=== PATIENT | male | born 1990 | race Caucasian/White ===

== ENCOUNTER 2021-02-10 15:49 | Emergency (ER) | payer MEDICARE, MEDICAID, SELFPAY ==
[2021-02-10 15:52] VITALS: BP 133/94; PULSE 61; RESP 18; TEMP 35.7; O2SAT 99; BMI 38.4
[2021-02-10 17:29] LABS: Absolute Lymphocyte Count 2.49 X10^3/uL (0.83-4.51); Absolute Neutrophil Count 5.8 X10^3/uL (2.0-7.7); Basophil# 0.04 X10^3/uL; Basophil% 0.4 % (0-1); Eosinophil# 0.15 X10^3/uL; Eosinophils% 1.6 % (0-5); Hematocrit 45.6 % (40-54); Hemoglobin 15.7 g/dL (13.0-16.5); Lymphocyte # 2.49 X10^3/ul (0.83-4.51); Lymphocyte % 27.1 % (19-41); Mean Corp Hgb Conc 34.4 g/dL (32-36); Mean Corpuscular Hgb 30.4 pg (27.0-32.0); Mean Corpuscular Volume 88.4 fL (80-94); Mean Platelet Vol. 9.9 fl (6.2-12.0); Monocyte# 0.62 X10^3/uL; Monocyte% 6.8 % (0-10); NRBC Flagged by Analyzer 0 % (0-5); Neutrophil # 5.82 X10^3/uL (2.7-7.7); Neutrophil % 63.4 % (47-70); Platelet Count 289 K/mm3 (150-450); RBC Distribution Width SD 38.5 fl (35.1-43.9); Red Blood Count 5.16 M/mm3 (4.6-6.2); White Blood Count 9.2 K/mm3 (4.4-11.0)
[2021-02-10 17:35] LABS: Anion Gap 4 (5-15); BUN 19 mg/dL (7-18); BUN/Creat Ratio 18.4 RATIO (10-20); Calcium,Total 9.3 mg/dL (8.5-10.1); Chloride 105 mmol/L (98-107); Creatinine, Serum 1.03 mg/dL (0.70-1.30); EST Glomerular Filtration Rate 89 mL/min (>60); Est Glom Filt Rate - Afr Amer 108 mL/min (>60); Estimated Creatinine Clearance 117.44 ml/min; Glucose 97 mg/dL (74-106); Potassium 4.5 mmol/L (3.5-5.1); Sodium Level 141 mmol/L (136-145)
[2021-02-10] MEDS: 0.9% Normal Saline 1,000 ML 999 ML IV (18:26)
[2021-02-10] MEDS: Ondansetron 4 MG/2 ML Vial IV (18:26)
[2021-02-10] MEDS: Morphine 4 MG/ML Syringe IV (18:26)
[2021-02-10 18:43] LABS: Bacteria 0 SEEN /hpf (None Seen); Mucous, Urine 0 SEEN /hpf (<or=2+); Red Blood Cells-Urine 0 SEEN /hpf (0-5); Squamous Epithelial Cells - UA 0 SEEN /hpf (0-5); White Blood Cells 0 SEEN /hpf (0-5)
[2021-02-10 18:46] LABS: Color, Urine Yellow (Yellow); Glucose, Dipstick Normal (Normal); Ketone-Dipstick Negative (Negative); Leukocyte Esterase-Dipstick Negative /ul (Negative); Nitrite-Dipstick Negative (Negative); Occult Blood-Urine 10 /ul (Negative); Protein-Dipstick Negative (Negative); Specific Gravity, Urine 1.025 (1.002-1.030); Urine Bilirubin Dipstick Negative (Negative); Urine Clarity Clear (Clear); Urine Urobilinogen Normal (Normal)
[2021-02-10 18:47] LABS: AST(SGOT) 26 U/L (15-37); Alanine Aminotransfer ALT/SGPT 47 U/L (16-61); Albumin, Serum 3.9 g/dL (3.2-5.0); Alkaline Phosphatase 90 U/L (45-117); Bilirubin, Direct 0.06 mg/dL (0.00-0.30); Lipase 316 U/L (73-393); Protein, Total 7.9 g/dL (6.4-8.2)
--- NOTE | 2021-02-10 19:00 | CT_ITS ---
STUDY: CT ABDOMEN AND PELVIS WITH CONTRAST REASON FOR EXAM: Male, 30 years old. Abdominal pain/ ? Pancreatitis RADIATION DOSAGE (If Supplied By Facility): CTDIvol = ( 18.51 ) mGy, DLP = ( 1354.60 ) mGycm TECHNIQUE: Transaxial images were obtained from the dome of the diaphragm to the symphysis pubis without oral contrast. IV 100mL Isovue-370 was administered. Sagittal and coronal images were reconstructed. Individualized dose optimization techniques were used for this CT. COMPARISON: None. FINDINGS: The visualized lung bases are unremarkable. The visualized portions of the heart are within normal limits. There is hepatomegaly with diffuse hepatic enlargement. Normal gallbladder and extrahepatic biliary system. Normal spleen. Normal pancreas. Normal bilateral adrenal glands. Normal right kidney. Normal left kidney. Normal visualized stomach. Normal small intestine. Normal colon. The appendix is visualized and appears normal. Normal abdominal aorta. Normal inferior vena cava. Normal retroperitoneum. Normal urinary bladder. There is no free fluid in the abdomen or pelvis. Normal abdominal wall. Normal osseous structures. CT/Abdomen/Pelvis W IV Cont ONLY IMPRESSION: Hepatomegaly. No biliary dilatation. Unremarkable pancreas. Electronically Signed: Rex Weber MD at 19:53 EDT , Service support ,
[2021-02-10 21:48] VITALS: RESP 16
--- NOTE | 2021-02-10 22:24 | EDS_ITS ---
HPI History of Present Illness Chief Complaint: Abd Pain Narrative Narrative: Patient is a 30-year-old male who presents to the ER with approximately 7 days of midepigastric upper abdominal pain. He does report a remote history of pancreatitis. He states that he used to be an alcoholic but now only drinks occasionally and he states he has been no binge drinking or excessive alcohol use recently. He states that he cannot get into a family doctor and with his persistent pain he is concerned he may have pancreatitis once again and therefore comes to the hospital for evaluation PFSH PFSH Home Medications hydrocodone-acetaminophen 1 tab PO Q6H PRN 3 Days #12 tab 02/10/21 [Rx Last Taken Unknown] ondansetron HCl [Zofran] 4 mg PO Q8H PRN #21 tab 02/10/21 [Rx Last Taken Unknown] Allergy/AdvReac Type Severity Reaction Status Date / Time paliperidone Allergy Other Verified 02/10/21 15:51 ziprasidone HCl [From Geodon] Allergy Hives Verified 02/10/21 15:49 ziprasidone mesylate Allergy Hives Verified 02/10/21 15:49 [From Geodon] Social History Smoking Status: Current every day smoker tobacco type: cigarettes and e- cigarettes ROS ROS ED Constitutional Constitutional ED: Denies chills or fever(s) ENT ENT ED: Denies sore throat Cardiovascular Cardiovascular: Denies chest pain Respiratory/Chest Respiratory/Chest: Denies cough or dyspnea Gastrointestinal Gastrointestinal: Reports abdominal pain and nausea; Denies diarrhea or vomiting Genitourinary Genitourinary ED: Denies dysuria Musculoskeletal Musculoskeletal: Denies myalgias Integumentary Denies rash Neurologic Neurologic: Denies headache(s) Hematologic/Lymphatic Hematologic/Lymphatic: Denies easy bleeding or easy bruising EXAM Physical Exam Const Vital Signs: 02/10/21 15:52 02/10/21 21:48 Temperature 96.3 F L Temperature Source Temporal Pulse Rate 61 Respiratory Rate 18 16 Blood Pressure 133/94 H Blood Pressure Mean 107 Pulse Ox 99 Oxygen Delivery Method Room Air Positive well nourished and well developed General Appearance ED: well developed HEENT Reports moist mucous membranes Eyes PERRL and EOMs intact bilaterally General Eye ED: Negative for scleral icterus Neck supple Resp normal respiratory effort and clear to auscultation bilaterally Cardio regular rate and regular rhythm GI non-distended GI Narrative: Abdomen is soft and nondistended with mild pain on palpation in the midepigastric and right upper quadrant region but no voluntary guarding or rigidity no pulsatile mass Auscultation: normoactive bowel sounds Palpation: soft Back/Spine no CVA tenderness Extremity normal to inspection Neuro oriented x3 and CN's II-XII intact bilaterally Sensorium / Orientation: alert Psych mental status grossly normal Skin no rashes or lesions noted Skin Narrative: No jaundice noted MDM MDM MDM Narrative Medical decision making narrative: Patient presented to the ER afebrile and with a nonsurgical abdomen. However with his report of previous pancreatitis and pain in the midepigastric region I did elect to perform basic labs and a CT scan. Labs revealed no clinically significant findings and CAT scan revealed no inflammatory process or mass on the pancreas. On reevaluation he is resting comfortably and therefore this time with a negative work-up I do not feel there is need for placement and he is safe for discharge Lab Data Attestation: I reviewed the patient's lab results. Labs: Laboratory Results - last 24 hr 02/10/21 02/10/21 02/10/21 16:52 16:52 16:52 WBC 9.2 RBC 5.16 Hgb 15.7 Hct 45.6 MCV 88.4 MCH 30.4 MCHC 34.4 RDW Std Deviation 38.5 RDW Coeff of Elisabet 12.0 Plt Count 289 MPV 9.9 Immature Gran % (Auto) 0.700 Neut % (Auto) 63.4 Lymph % (Auto) 27.1 [place] % (Auto) 6.8 Eos % (Auto) 1.6 Baso % (Auto) 0.4 Absolute Neuts (auto) 5.8 Absolute Lymphs (auto) 2.49 Nucleated RBC % 0 Sodium 141 Potassium 4.5 Chloride 105 Carbon Dioxide 32.0 Anion Gap 4 L BUN 19 H Creatinine 1.03 Estim Creat Clear Calc 117.44 Est GFR (MDRD) Af Amer 108 Est GFR (MDRD) Non-Af 89 BUN/Creatinine Ratio 18.4 Glucose 97 Calcium 9.3 Total Bilirubin 0.30 Direct Bilirubin 0.06 AST 26 ALT 47 Alkaline Phosphatase 90 Total Protein 7.9 Albumin 3.9 Globulin 4.0 Lipase 316 Urine Color Urine Clarity Urine pH Ur Specific Burns Urine Protein Urine Glucose (UA) Urine Ketones Urine Occult Blood Urine Nitrite Urine Bilirubin Urine Urobilinogen Ur Leukocyte Esterase Urine RBC Urine WBC Ur Squamous Epith Cells Urine Bacteria Urine Mucus 02/10/21 18:35 WBC RBC Hgb Hct MCV MCH MCHC RDW Std Deviation RDW Coeff of Elisabet Plt Count MPV Immature Gran % (Auto) Neut % (Auto) Lymph % (Auto) [place] % (Auto) Eos % (Auto) Baso % (Auto) Absolute Neuts (auto) Absolute Lymphs (auto) Nucleated RBC % Sodium Potassium Chloride Carbon Dioxide Anion Gap BUN Creatinine Estim Creat Clear Calc Est GFR (MDRD) Af Amer Est GFR (MDRD) Non-Af BUN/Creatinine Ratio Glucose Calcium Total Bilirubin Direct Bilirubin AST ALT Alkaline Phosphatase Total Protein Albumin Globulin Lipase Urine Color Yellow Urine Clarity Clear Urine pH 5.0 Ur Specific Burns 1.025 Urine Protein Negative Urine Glucose (UA) Normal Urine Ketones Negative Urine Occult Blood 10 H Urine Nitrite Negative Urine Bilirubin Negative Urine Urobilinogen Normal Ur Leukocyte Esterase Negative Urine RBC 0 SEEN Urine WBC 0 SEEN Ur Squamous Epith Cells 0 SEEN Urine Bacteria 0 SEEN Urine Mucus 0 SEEN Radiography Diagnostic Testing: Clinical Impression(s) from Imaging Studies Abdomen/Pelvis CT 02/10/21 19:00 IMPRESSION: Hepatomegaly. No biliary dilatation. Unremarkable pancreas. Electronically Signed: Rex Weber MD at 19:53 EDT , Service support , Discharge Plan Triage Chief Complaint: Abd Pain ED Provider: Mando Daley Dx/Rx/DC Orders Clinical Impression: Nonspecific abdominal pain Instructions: Abdominal Pain Prescriptions: New ondansetron HCl [Zofran] 4 mg tablet 4 mg PO Q8H PRN (Reason: nausea and vomiting) Qty: 21 RF: 0 hydrocodone-acetaminophen 5-325 mg tablet 1 tab PO Q6H PRN (Reason: pain) 3 Days Qty: 12 RF: 0 Primary Care Provider: Care Physician,No Primary Referrals: Collette Morrissey MD [STAFF PHYSICIAN] - 3-5 Days if not improving Care Physician,No Primary [Primary Care Provider] - Disposition Disposition: Home, Self Care
== END 2021-02-10 23:12 | disposition home or self-care (01) ==
PROVIDERS: Emergency Provider Emergency Medicine
DX: R10.9 Unspecified abdominal pain (principal); F17.210 Nicotine dependence, cigarettes, uncomplicated; Z87.19 Personal history of other diseases of the digestive system
CPT/HCPCS: 74177; 80048; 80076; 81001; 83690; 85025; 96374; 96375; 99283; J7030; Q9967; A4216; J2405

== ENCOUNTER 2021-05-27 14:25 | Emergency (ER) | payer MEDICARE, MEDICAID, SELFPAY ==
[2021-05-27 14:25] VITALS: BP 130/86; PULSE 91; RESP 15; TEMP 36.6; O2SAT 98; BMI 40.9
--- NOTE | 2021-05-27 14:40 | EX.ED.VIS.HA ---
HPI History of Present Illness Chief Complaint: Headache Narrative Narrative: Patient presents with migraine headache that he has had for the last 30 hours. While he states he does not have a formal diagnosis of migraine headaches, he has had intermittent headaches over the last 2 to 3 years, and states I know what a migraine is. He states he has been nauseated and has vomited a few times. He endorses photophobia. He has pain behind his right eye that is throbbing in nature. He states he rates it a 6 and at times it will intensify to a 9 for a few minutes. He denies any paresthesias. No fevers or chills. He went to urgent care, and they tested him for Covid. He has an appointment with his primary care physician next Tuesday but states I could not wait. He has been taking ibuprofen intermittently for pain. He states it was not working on this particular headache. 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 PFSH PFSH Home Medications hydrocodone-acetaminophen 1 tab PO Q6H PRN 3 Days #12 tab 02/10/21 [Rx Last Taken Unknown] hydrocodone-acetaminophen 1 tab PO Q6H PRN 3 Days #12 tab 02/10/21 [Rx Last Taken Unknown] ondansetron HCl [Zofran] 4 mg PO Q8H PRN #21 tab 02/10/21 [Rx Last Taken Unknown] ondansetron HCl [Zofran] 4 mg PO Q8H PRN #21 tab 02/10/21 [Rx Last Taken Unknown] Allergy/AdvReac Type Severity Reaction Status Date / Time paliperidone Allergy Other Verified 05/27/21 14:25 ziprasidone HCl [From Geodon] Allergy Hives Verified 05/27/21 14:25 ziprasidone mesylate Allergy Hives Verified 05/27/21 14:25 [From Geodon] Social History Smoking Status: Current every day smoker tobacco type: cigarettes and e-cigarettes ROS ROS ED ROS Narrative Constitutional: No fever, no chills. HEENT: No sore throat. No neck pain. No loss of vision. No rhinorrhea. Cardiovascular: No chest pain. No palpitations. No pedal edema. Respiratory: No cough, no shortness of breath. Abdominal: No abdominal pain. No nausea. No vomiting. Genitourinary: No dysuria. No hematuria. Musculoskeletal: No myalgias. No arthralgias. Neurologic: Positive right-sided headaches. No dizziness. No lightheadedness. Positive photophobia. Skin: No rash. No change in color. Psychiatric: No depression. No anxiety. EXAM Physical Exam Narrative Exam Narrative: Afebrile. Vital signs noted. HEENT: Normocephalic. Atraumatic. PERRL, EOMI. Neck soft and supple. No point tenderness or step off. Cardiovascular: Regular rate and rhythm. No murmurs, rubs, or gallops appreciated. Respiratory: No tachypnea. Lungs clear to auscultation bilaterally. Gastrointestinal: Abdomen soft, nontender, with normoactive bowel sounds. No rebound or guarding. Neurological: Awake. Alert. Oriented x3. Nonfocal, nonlateralizing. DTRs equal and symmetric. Skin: No rash. Normal color. No pallor. Musculoskeletal: No pedal edema. Full range of motion extremities. Const Vital Signs: 05/27/21 14:25 Temperature 97.8 F Temperature Source Temporal Pulse Rate 91 Respiratory Rate 15 Blood Pressure 130/86 H Blood Pressure Mean 100 Pulse Ox 98 Oxygen Delivery Method Room Air MDM MDM MDM Narrative Medical decision making narrative: As the patient drove here and cannot get a ride, there is a limited number of things that I can give him for analgesia. I do not feel CT the brain is indicated. He was administered a Toradol intramuscular injection and Zofran 8 mg ODT. Repeat examination approximately 2-1/2 hours later shows him resting comfortably. He is easily awakened. He states his pain is down to a 3. He will take [id number] medications as needed. He states he has a lot of stomach issues but cannot take Tylenol. Hence, I feel that any headache medication should be left to his primary care physician. Return instructions were reviewed. Disposition is discharged home in stable condition. Discharge Plan Triage Chief Complaint: Headache ED Provider: Erwin Ventura Dx/Rx/DC Orders Clinical Impression: Migraine headache Instructions: ED Headache Unspecified, ED, Migraine (Classical) Prescriptions: No Action ondansetron HCl [Zofran] 4 mg tablet 4 mg PO Q8H PRN (Reason: nausea and vomiting) Qty: 21 RF: 0 hydrocodone-acetaminophen 5-325 mg tablet 1 tab PO Q6H PRN (Reason: pain) 3 Days Qty: 12 RF: 0 hydrocodone-acetaminophen 5-325 mg tablet 1 tab PO Q6H PRN (Reason: pain) 3 Days Qty: 12 RF: 0 ondansetron HCl [Zofran] 4 mg tablet 4 mg PO Q8H PRN (Reason: nausea and vomiting) Qty: 21 RF: 0 Primary Care Provider: Bryan Bledsoe NP Referrals: Bryan Bledsoe NP, [employer] [Primary Care Provider] - 06/01/21 Disposition Disposition: Home, Self Care
[2021-05-27] MEDS: Ondansetron ODT 4 MG Tablet 8 MG PO (14:47)
[2021-05-27] MEDS: Ketorolac 60 MG/2 ML Vial IM (14:49)
[2021-05-27 16:59] VITALS: RESP 14
== END 2021-05-27 17:00 | disposition home or self-care (01) ==
PROVIDERS: Emergency Provider Emergency Medicine; PCP Nurse Practitioner Family; Visit Provider Emergency Medicine
DX: G43.909 Migraine, unspecified, not intractable, without status migrainosus (principal); F17.290 Nicotine dependence, other tobacco product, uncomplicated; F17.210 Nicotine dependence, cigarettes, uncomplicated
CPT/HCPCS: 96372; 99282